=== PATIENT | female | born 1995 | race Caucasian/White ===

== ENCOUNTER → 2016-07-24 | Outpatient (CLI) | payer MEDICAID, OTHER ==
[~2016-07-24] MED LIST: METHACHOLINE KIT (J7674) INH ONE
== END ==
LOC: M CARPUL 10:27
PROVIDERS: ATTEND Nurse Practitioner Adult Health
DX: R06.02 Shortness of breath (principal)

== ENCOUNTER → 2020-09-07 | Outpatient (CLI) | payer OTHER ==
--- NOTE | 2020-09-08 07:51 | REP ---
INDICATION: ANATOMY COMPARISON: None. TECHNIQUE: Transabdominal obstetrical ultrasound with color Doppler evaluation. FINDINGS: Examination demonstrates a single live intrauterine in breech presentation. motion is identified by technologist. Placenta is noted posterior/fundal and grade 0 without evidence for placenta previa or abruption. Amniotic fluid volume is normal. Cervix measures 5.4 cm in length and appears closed.. Gestational age by LMP 16 weeks 6 days with SAIGE 02/16/2021. Gestational age by current measurements 18 weeks 5 days with SAIGE 02/03/2021. FHR equals 134 beats per minute. BPD: 4.2 cm at 18 weeks 5 days HC: 15.8 cm at 18 weeks 5 days AC: 12.9 cm at 18 weeks 3 days FL: 2.9 cm at 18 weeks 6 days HL: 2.8 cm at 19 weeks 0 days HC/AC: 1.22 Estimated weight 251 grams (41stpercentile based on age by current measurements). Anatomical assessment demonstrates normal structures including cranium, cavum, cerebellum/posterior fossa, facial features, lungs, ventricular outflow tracts, diaphragm, stomach, cord insertion/three-vessel cord, kidneys/bladder, and extremities. Small bilateral choroid plexus cysts are identified along with echogenic foci within the cardiac ventricle suggesting prominent chordae tendineae. Incomplete evaluation of the spine due to positioning. IMPRESSION: Single live intrauterine in breech presentation demonstrating appropriate estimated weight based on current measurements. Anatomical limitations as noted above may warrant re-evaluation and follow-up. <Electronically signed by Booker Simon > 09/08/20 [id number]
== END ==
LOC: M WHC 10:51
PROVIDERS: ATTEND Advanced Practice Midwife
DX: Z34.92 Encounter for supervision of normal pregnancy, unspecified, second trimester (principal); Z3A.16 16 weeks gestation of pregnancy

== ENCOUNTER → 2020-09-11 | Outpatient (CLI) | payer OTHER | LOC: M WHC 17:46 | PROVIDERS: ATTEND Obstetrics & Gynecology | DX: Z53.9 Procedure and treatment not carried out, unspecified reason (principal) ==

== ENCOUNTER → 2020-09-12 | Outpatient (CLI) | payer OTHER | LOC: M WHC 10:36 | PROVIDERS: ATTEND Advanced Practice Midwife | DX: Z34.91 Encounter for supervision of normal pregnancy, unspecified, first trimester (principal) ==

== ENCOUNTER 2020-12-19 13:32 | Outpatient (CLI) | payer OTHER ==
[~2020-12-19] VITALS: Ht 160 cm; Wt 103.0 kg
[2020-12-19] VITALS (9 sets, daily range): BP systolic 131–159; BP diastolic 72–88
[2020-12-19] MEDS ORDERED: ACET-907 PO (13:52)
[2020-12-19] MEDS ORDERED: OMEP-221 (13:52)
[2020-12-19] MEDS ORDERED: ONDA4TAB6 (13:52)
[2020-12-19] MEDS ORDERED: FIORICET TAB PO ONE (14:00)
[2020-12-19 14:17] LABS: HEMATOCRIT 32.8 % (36.0-47.0); HEMOGLOBIN 10.6 g/dl (12.0-15.5); MEAN CORPUSCULAR HEMOGLOBIN 26.3 pg (27.0-33.0); MEAN CORPUSCULAR HGB CONC 32.3 g/dl (32.0-36.5); MEAN CORPUSCULAR VOLUME 81.4 fl (80.0-96.0); PLATELET COUNT, AUTOMATED 427 10^3/uL (150-450); RED BLOOD COUNT 4.03 10^6/uL (4.00-5.40); WHITE BLOOD COUNT 10.6 10^3/uL (4.0-10.0)
[2020-12-19 14:41] LABS: TOTAL PROTEIN,RANDOM URINE 40.2 MG/DL (0.0-12.0)
[2020-12-19 14:50] LABS: ALBUMIN 2.4 GM/DL (3.2-5.2); ALT/SGPT 23 U/L (12-78); BILIRUBIN,TOTAL 0.2 MG/DL (0.2-1.0); BLOOD UREA NITROGEN 7 MG/DL (7-18); CALCIUM LEVEL 8.6 MG/DL (8.5-10.1); CARBON DIOXIDE LEVEL 20 MEQ/L (21-32); CHLORIDE LEVEL 109 MEQ/L (98-107); CREATININE FOR GFR 0.56 MG/DL (0.55-1.30); GLOMERULAR FILTRATION RATE > 60.0 (>60); GLUCOSE, FASTING 132 MG/DL (70-100); LDH LACTATE DEHYDROGENASE 167 U/L (84-246); SODIUM LEVEL 138 MEQ/L (136-145); TOTAL PROTEIN 6.4 GM/DL (6.4-8.2); URIC ACID 4.3 MG/DL (2.6-6.0)
--- NOTE | 2020-12-19 17:03 | REP ---
INDICATION: GHTN vs Pre-e, EDC: 02/03/21. EFW, BPP please. COMPARISON: 09/07/2020 TECHNIQUE: Transabdominal of OB ultrasound scanning. Color imaging and Doppler interrogation of umbilical arteries performed. Biophysical profile performed. FINDINGS: Scanning demonstrates a viable single intrauterine gestation now in a cephalic lie. motion is observed and heart rate is recorded at 139 beats per minute. A posterior, grade 1 placenta is seen without evidence of previa. Amniotic fluid is subjectively normal. The TETO is 22.4 cm with normal range 8.2-24.6. Largest fluid pocket 7.9 cm. Closed cervical length is measured at 3.7 cm transabdominally. No extrauterine abnormality is observed. There has been appropriate interval growth. No anomaly is seen. The following anatomic structures are identified and felt to be sonographically unremarkable today or on the previous study.: cranium, cavum, cerebellum and posterior fossa, face and profile, lungs, left and right ventricular outflow tract views, diaphragm, left-sided stomach, abdominal wall cord insertion, three-vessel umbilical cord, kidneys and bladder, spine, and upper and lower extremities. Choroid plexus is not optimally visualized on this exam. Four-chamber heart view in adequately seen on this patient due to position. Biometry chart: BPD 8.7 cm; 35 weeks 0 days Head circumference 30.9 cm; 34 weeks 4 days Abdominal circumference 30.4 cm; 34 weeks 2 days Femur length 6.8 cm; 34 weeks 6 days Humeral length 6.0 cm; 35 weeks 0 days HC/AC ratio normal 1.02 Cephalic index normal 0.80 Estimated weight 2457 grams, 5 pounds 6 ounces, 71st percentile for 33 weeks 3 days (based on initial ultrasound). Mid cord umbilical artery Doppler shows S/D ratio 2.57 with normal forward diastolic flow and resistive index of 0.61, all of this normal. Biophysical profile: Breathin Tone: 2 Movement: 2 AF the colon 2 IMPRESSION: Viable single intrauterine gestation at 34 weeks 5 days by today's composite sonographic criteria. Expected gestational age estimate based on prior sonography is 33 weeks is 3 days. SAIGE by prior sonography 02/03/2021. No anomaly visible,. but the four-chamber heart is incompletely evaluated on the previous and this exam due to position. Choroid plexus not well seen today. Biophysical profile score 12/31 <Electronically signed by Don Maldonado > 12/19/20 [id number]
[2020-12-19] MEDS ORDERED: FIOR1CAP PO (18:06)
--- NOTE | 2020-12-19 19:50 | IPNPDOC ---
Obstetrical Progress Note Date of Service Dec 19, 2020 Subjective 25-year-old -0-0-1 at 33+3 weeks gestation. Presents today with complaints of generalized edema and intermittent headaches. Her last appointment was on September 12, 2020. Poor adherence to appointments attributable to lack of private transportation. Patient states she also has not had a cell phone for several months. She is dated by a first trimester ultrasound, with an EDC of 02/03/2021. She denies any vaginal bleeding, loss of fluid, or uterine contractions. She is feeling her baby move frequently. Her headaches are intermittent often unresponsive to Tylenol. She denies any visual changes right upper quadrant pain shortness of breath or chest pain. 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 Heart regular rate and rhythm Lungs clear to auscultation bilaterally Extremities 1-2+ DTR, nonedematous, nontender Abdomen soft nontender uterine fundus nontender and consistent with gestational age Labs: Item Value Date Time White Blood Count 10.6 10^3/uL H 12/19/20 1407 Hemoglobin 10.6 g/dl L 12/19/20 1407 Hematocrit 32.8 % L 12/19/20 1407 Platelet Count 427 10^3/uL 12/19/20 1407 Creatinine 0.56 MG/DL 12/19/20 1407 Uric Acid 4.3 MG/DL 12/19/20 1407 Aspartate Amino Transf (AST/SGOT) 20 U/L 12/19/20 1407 Alanine Aminotransferase (ALT/SGPT) 23 U/L 12/19/20 1407 Lactate Dehydrogenase 167 U/L 12/19/20 1407 Urine Random Creatinine 167.0 MG/DL 12/19/20 1410 Urine Random Total Protein 40.2 MG/DL H 12/19/20 1410 Rads: Ultrasound limited: BPP 8 out of 8, EFW 71st percentile [facility] EFM: Category 1/reactive, no decelerations, moderate variability [place]: No contraction pattern detected A/P: 25-year-old -0-0-1 at 33+3 weeks gestation. Possible gestational hypertension/preeclampsia. No evidence of severe features. Reassuring status and maternal status is stable. I discussed with patient possibility of developing preeclampsia with severe features. Importance of close outpatient follow-up emphasized. Now that she has adequate transportation, she is able to follow-up closely with our practice. She has an appointment for later this week on 12/22. Discussed the possibility of induction of labor if her clinical status worsens. Her headache improved with Fioricet while being evaluated in the triage unit. A prescription for Fioricet was entered to her pharmacy. Signs symptoms of preeclampsia were reviewed and she will return at a sooner date if necessary. Objective Vital Signs Date Time Temp Pulse Resp B/P (MAP) Pulse Ox O2 Delivery O2 Flow Rate FiO2 12/19/20 18:01 104 18 139/88 (105) 12/19/20 13:50 97.5 SEPIDEH PUENTE DO Dec 19, 2020 19:50
== END 2020-12-19 18:18 | disposition home or self-care (01) ==
LOC: M LDO 13:32
PROVIDERS: ATTEND Obstetrics & Gynecology
DX: O26.893 Other specified pregnancy related conditions, third trimester (principal); R51.9 Headache, unspecified; R60.9 Edema, unspecified; O09.33 Supervision of pregnancy with insufficient antenatal care, third trimester; R03.0 Elevated blood-pressure reading, without diagnosis of hypertension; Z3A.33 33 weeks gestation of pregnancy

== ENCOUNTER 2020-12-22 16:01 | Outpatient (CLI) | payer OTHER ==
[~2020-12-22 16:01] MED LIST changes: +ACET-907 PO; +FIOR1CAP PO; -METHACHOLINE KIT (J7674) INH ONE; +OMEP-221; +ONDA4TAB6
[2020-12-22 17:20] LABS: HEMATOCRIT 31.8 % (36.0-47.0); HEMOGLOBIN 10.5 g/dl (12.0-15.5); MEAN CORPUSCULAR HEMOGLOBIN 26.6 pg (27.0-33.0); MEAN CORPUSCULAR VOLUME 80.7 fl (80.0-96.0); PLATELET COUNT, AUTOMATED 406 10^3/uL (150-450); RED BLOOD COUNT 3.94 10^6/uL (4.00-5.40); WHITE BLOOD COUNT 10.8 10^3/uL (4.0-10.0)
[2020-12-22 17:35] LABS: ALT/SGPT 16 U/L (12-78); BILIRUBIN,TOTAL 0.2 MG/DL (0.2-1.0); CREATININE FOR GFR 0.57 MG/DL (0.55-1.30); GLOMERULAR FILTRATION RATE > 60.0 (>60); LDH LACTATE DEHYDROGENASE 153 U/L (84-246); URIC ACID 4.7 MG/DL (2.6-6.0)
[2020-12-22 18:39] LABS: TOTAL PROTEIN,RANDOM URINE 41.4 MG/DL (0.0-12.0)
--- NOTE | 2020-12-22 19:05 | IPNPDOC ---
Text Note Date of Service The patient was seen on 12/22/20. NOTE Outpatient 25yo . SAIGE 02/03/2021. Presents from office at 33w6d. has been complicated by noncompliance with care. Hasn't been officially seen in the office since 09/12/2020. Has reported labile blood pressures with headaches. Was seen on L&D earlier this week for PreE workup as well. No distress noted Normotensive FH reassuring for gestation, no UC HbA1C 6.0. Pt now reports previous history GDM during first , diet controlled PreE labs WNL, urine ratio now 0.18, previously 0.24 Reviewed with patient need to have appropriate visits from here forward 1hr GCT ordered. Stressed importance of having it done at her appt next week Pt verbalized understanding. States they now have better access to transportation and phone for calling office. Discharged home. VS,Fishbone, I+O VS, Fishbone, I+O Laboratory Tests 12/22/20 16:53 Brandie Ma CNM Dec 22, 2020 19:05
== END 2020-12-22 20:19 | disposition home or self-care (01) ==
LOC: M LDO 16:01
PROVIDERS: ATTEND Advanced Practice Midwife
DX: O26.893 Other specified pregnancy related conditions, third trimester (principal); Z3A.33 33 weeks gestation of pregnancy; R03.0 Elevated blood-pressure reading, without diagnosis of hypertension; Z87.59 Personal history of other complications of pregnancy, childbirth and the puerperium; O09.33 Supervision of pregnancy with insufficient antenatal care, third trimester

== ENCOUNTER 2021-01-14 05:26 | Inpatient (IN) | payer OTHER ==
[2021-01-14] VITALS (44 sets, daily range): BP systolic 94–153; BP diastolic 50–91
[~2021-01-14] VITALS: Ht 160 cm; Wt 104.0 kg
[2021-01-14] MEDS ORDERED: PENICILLIN G POTASSIUM IV 5 MU in D5W MINI-BAG PLUS 100 ML IV STA (06:21)
[2021-01-14] MEDS ORDERED: LACTATED RINGER'S 1000 ML IV STA (06:21)
[2021-01-14] MEDS ORDERED: METHYLERGONOVINE MALEATE 0.2 MG/ML VIAL (J2210) IM PRN (06:25)
[2021-01-14] MEDS ORDERED: CARBOPROST TROMETHAMINE 250 MCG/ML AMP IM PRN (06:25)
[2021-01-14] MEDS ORDERED: TRANEXAMIC ACID INJection 1,000 MG in NS 100 ML IV PRN (06:25)
--- NOTE | 2021-01-14 06:38 | HPEPDOC ---
Obstetrical History & Physical General Date of Admission Jan 14, 2021 at 06:22 History of Present Illness 25-year-old G2, P1001 at 37+1 weeks gestation. Presents with frequent, painful uterine contractions over the past several hours. Denies any loss of fluid or vaginal bleeding. Reports regular movement. ROS: no PEÑA, cp, sob, fever/chills/nausea/vomiting. course: Scant care; only for appointments. Routine labs not done as requested. 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 Ondansetron (Ondansetron Odt) 4 Mg Tab.rapdis Physical Examination Physical Examination GENERAL: Alert and oriented times three. ABDOMEN: Gravid and non-tender to touch. FETUS: Is vertex (VTX) by sterile vaginal examination (SVE), fetus is vertex (VTX) by Oswaldo. HEART RATE: Regular rate and rhythm. LUNGS: Clear to auscultation (CTA). EXTREMITIES: No edema. No clonus. SVE: 3 cm, 75%, -3 station, cephalic, grossly ruptured with positive nitrazine and pooling, no bloody show EFM: Category 1 [place]: Contractions every 3 to 7 minutes Vital Signs/I&O Vital Signs Date Time Temp Pulse Resp B/P (MAP) Pulse Ox O2 Delivery O2 Flow Rate FiO2 01/14/21 05:53 97.6 01/14/21 05:51 76 121/58 (79) Assessment/Plan Assessment 25-year-old -0-0-1 at 37+1 weeks gestation with spontaneous rupture of membranes at term. Reassuring maternal and status Plan Admit and orient. 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 We will cover with prophylactic antibiotics for GBS Labs and intravenous (IV) per unit protocol. Active management / augmentation as indicated. DO KWAME Vallejo JONATHAN R. DO Jan 14, 2021 06:38
[2021-01-14] MEDS ORDERED: OXYTOCIN DRIP 30 UNITS in IV 1 EA IV SCH ×2 (06:45→19:50)
[2021-01-14 07:26] LABS: HEMATOCRIT 30.2 % (36.0-47.0); HEMOGLOBIN 9.8 g/dl (12.0-15.5); MEAN CORPUSCULAR HEMOGLOBIN 25.7 pg (27.0-33.0); MEAN CORPUSCULAR HGB CONC 32.5 g/dl (32.0-36.5); MEAN CORPUSCULAR VOLUME 79.3 fl (80.0-96.0); PLATELET COUNT, AUTOMATED 356 10^3/uL (150-450); RED BLOOD COUNT 3.81 10^6/uL (4.00-5.40); WHITE BLOOD COUNT 8.1 10^3/uL (4.0-10.0)
[2021-01-14] MEDS: LR 1,000 ML IV SCH ×2 (07:46→14:42)
[2021-01-14] MEDS ORDERED: FENTANYL 2MCG/ML ROPIVACAINE 0.2% IN 0.9% NACL 100ML IVBAG As Ordered ONE ×2 (08:53→18:35)
[2021-01-14] MEDS ORDERED: **PENDING PCN ENTRY XX SCH (09:00)
[2021-01-14] MEDS ORDERED: REFRIGERATOR IV KEYS XX PRN (10:10)
[2021-01-14] MEDS ORDERED: ONDANSETRON 4MG/2ML VIAL IV PRN ×2 (10:10→19:50)
[2021-01-14] MEDS ORDERED: EPIDURAL COMMENT XX SCH (10:10)
[2021-01-14] MEDS ORDERED: ePHEDrine SULFATE 25 MG/5 ML(5MG/ML) SYRINGE IV PRN (10:10)
[2021-01-14] MEDS ORDERED: NALOXONE INJ 0.4MG/1ML VIAL (J2310 PER 1MG) IV PRN (10:10)
[2021-01-14] MEDS ORDERED: EPIDURAL/PCA KEYS XX PRN (10:10)
[2021-01-14] MEDS ORDERED: diphenhydrAMINE 50MG/ML VIAL (J1200) IV PRN (10:10)
[2021-01-14] MEDS ORDERED: LACTATED RINGER'S 1000 ML IV PRN (10:10)
[2021-01-14] MEDS: FENTANYL/ROPIVACAINE/NACL BAG 100 ML EPIDURAL SCH ×2 (10:24→18:53)
[2021-01-14] MEDS ORDERED: PENICILLIN G POTASSIUM IV 2.5 MU in IV 1 EA IV SCH (10:25)
[2021-01-14] MEDS: PENICILLIN G POTASSIUM IV 2.5 MU in IV 1 EA IV SCH ×2 (12:16→17:17)
--- NOTE | 2021-01-14 14:12 | IPNPDOC ---
Obstetrical Progress Note Date of Service Jan 14, 2021 Subjective Patient is comfortable with an epidural. No fever chills myalgias. No vaginal bleeding Objective Vital Signs Date Time Temp Pulse Resp B/P (MAP) Pulse Ox O2 Delivery O2 Flow Rate FiO2 01/14/21 12:36 68 94/50 (65) 01/14/21 05:53 97.6 Assessment Heart Rate Tracing: Category I Tocometer Contractions: Yes Frequency: every 2-5 min. (Pitocin at 6 milliunits/min) Sterile Vaginal Examination Dilation: 5 cm Effacement (%): 50% Station: -2 Cervical Consistency: Soft Cervical Position: Anterior Postion/Presentation: Cephalic presentation Assessment and Plan Status: Reassuring Group B Streptococcus: Unknown Anticipate: Vaginal Delivery Additional Comments Continue with Pitocin IUPC and FSE if unchanged after 3 to 4 hours SEPIDEH PUENTE DO Jan 14, 2021 14:12
[2021-01-14] MEDS ORDERED: DOCUSATE SODIUM 100MG CAPSULE PO PRN (19:50)
[2021-01-14] MEDS ORDERED: MEASLES,MUMPS,RUBELLA VACCINE INJ (MMR-II) (90707) SC SCH (19:50)
[2021-01-14] MEDS ORDERED: IBUPROFEN 600MG TAB PO PRN (19:50)
[2021-01-14] MEDS ORDERED: RHOGAM 300 MCG (1500 IU) INJ (J2790) IM SCH (19:50)
[2021-01-14] MEDS ORDERED: METHYLERGONOVINE MALEATE 0.2 MG TAB PO PRN (19:50)
[2021-01-14] MEDS ORDERED: DIBUCAINE 1% OINTMENT 30GM TOP PRN (19:50)
[2021-01-14] MEDS ORDERED: ACETAMINOPHEN TAB 650MG DOSE (2X325MG) PO PRN (19:50)
[2021-01-14] MEDS ORDERED: LR 1,000 ML IV SCH (19:50)
[2021-01-14] MEDS ORDERED: ACETAMINOPHEN 500 MG TAB PO PRN (19:50)
--- NOTE | 2021-01-14 19:55 | DNPDOC ---
[facility] Delivery Note Delivery Note DATE OF DELIVERY: 01/14/2021 TIME OF DELIVERY: 193 Spontaneous vaginal delivery. DIRT BIKE RACER: Dr. Matt Quintero DO FACOG ANESTHESIA: Epidural LACERATION: None ESTIMATED BLOOD LOSS: 200 mL. FINDINGS: 6 pound 9 ounce (2980g) Male infant, Score 8 and 9. DELIVERY SUMMARY: The active phase and second stage of labor progressed in normal fashion. She received Pitocin augmentation throughout her labor course. The head delivered in the MAIKOL position, and restituted LOT. No nuchal cord was noted. The anterior shoulder delivered with gentle downward guidance and the remainder of the body delivered with ease. The baby was placed on the patient's chest. Delayed cord clamping occurred for approximately 1 minute. The cord was then doubly clamped and cut. IV Pitocin was bolused to actively manage the third stage of labor. The placenta delivered intact without any difficulty within 10 minutes of delivery. The uterine fundus was noted to be firm and 2 cm below the umbilicus. The cervix, vagina, vulva and perineum were inspected. Excellent hemostasis was noted. Sponge, needle and instrument counts were correct per protocol. DO DUNG Neal JONATHAN R. DO Jan 14, 2021 19:54
[2021-01-15] MEDS: IBUPROFEN 800 MG TAB PO PRN ×2 (03:00→11:46)
[2021-01-15 06:06] VITALS: BP 95/55
[2021-01-15] MEDS: PRENATAL VITAMINS CHEWABLE TABLET PO SCH (08:53)
--- NOTE | 2021-01-15 10:47 | IPNPDOC ---
Progress Note Date of Service: Jan 15, 2021 Day#: 1 Progress Note SUBJECT: Sarai is a 25-year-old female who is day 1 . She had an uncomplicated vaginal delivery. Her was complicated by minimal care. She has no complaints. Reports she is eating a regular diet and ambulating without any issues. She reports she is voiding without any issues. OBJECTIVE: VITAL SIGNS: Within normal limits, afebrile. Alert and oriented times three. Respiratory: regular rate and rhythm. No use of accessory muscles. Abdomen: Fundus firm at U-1. Soft, NTTP. Minimal lochia. ASSESSMENT: Day 1 . PLAN: 1. Continue supportive nursing care. 2. PFS consult to be done due to minimal care and lack of transportation. 3. Consider discharge to home tomorrow. 4. Patient may shower today and have her saline lock out. VS, I&O, 24H, Fishbone Vital Signs/I&O Vital Signs Date Time Temp Pulse Resp B/P (MAP) Pulse Ox O2 Delivery O2 Flow Rate FiO2 01/15/21 06:06 97.8 64 14 95/55 (68) 97 Room Air I&O- Last 24 Hours up to 6 AM 01/15/21 05:59 Intake Total 665 ml Output Total 1350 ml Balance -685 ml Laboratory Data 24H LABS Laboratory Tests 2 01/14/21 12:26: Serology Scanned Report Hepatitis B Testing Microbiology Microbiology 01/14/21 Group B Streptococcus Screen (VANIA), Received Pending SHELDON LAM CNM Jan 15, 2021 10:47
[2021-01-15 13:37] LABS: HEPATITIS C VIRUS ABY INDEX < 0.0 INDEX (<0.8); HIV 1&2 SCREEN CENTAUR NEGATIVE (NEGATIVE)
[2021-01-15 18:00] VITALS: BP 125/72
[2021-01-16 06:00] VITALS: BP 90/50
[2021-01-16] MEDS: PRENATAL VITAMINS CHEWABLE TABLET PO SCH (07:35)
[2021-01-16] MEDS ORDERED: ACET-683 PO (08:15)
[2021-01-16] MEDS ORDERED: IBUP80TA PO (08:15)
== END 2021-01-16 12:58 | disposition home or self-care (01) | DRG 560 ==
LOC: M LDO 05:26 → M LDI 06:22 → M OBS 22:05
PROVIDERS: ADMIT Obstetrics & Gynecology; ATTEND Obstetrics & Gynecology
PROC: 10E0XZZ Delivery of Products of Conception, External Approach (ICD-10-PCS; principal; 2021-01-14)
DX: O80 Encounter for full-term uncomplicated delivery (principal); Z37.0 Single live birth; Z3A.37 37 weeks gestation of pregnancy

== ENCOUNTER → 2023-04-22 | Outpatient (CLI) | payer OTHER ==
[~2023-04-22] MED LIST changes: +ACET-683 PO; +IBUP80TA PO; -OMEP-221; +OMEP40CA5
== END ==
LOC: M WHC 09:57
PROVIDERS: ATTEND Advanced Practice Midwife
DX: Z34.82 Encounter for supervision of other normal pregnancy, second trimester (principal); Z3A.20 20 weeks gestation of pregnancy

== ENCOUNTER 2023-08-07 16:15 | Outpatient (CLI) | payer OTHER ==
[~2023-08-07] VITALS: Ht 160 cm; Wt 99.4 kg
[2023-08-07] MEDS ORDERED: PRENTAB9 PO (16:36)
[2023-08-07] MEDS ORDERED: CALC500C15 PO (16:36)
[2023-08-07 16:44] VITALS: BP 140/79
[2023-08-07] MEDS ORDERED: OSELTAMIVIR PHOSPHATE 75 MG CAP (TAMIFLU) PO ONE (17:05)
[2023-08-07] MEDS: ACETAMINOPHEN 500 MG TAB PO ONE (17:09)
[2023-08-07] MEDS: LR 1,000 ML IV ONE (17:09)
[2023-08-07] MEDS: OSELTAMIVIR PHOSPHATE 75 MG CAP (TAMIFLU) PO ONE (17:25)
[2023-08-07 17:46] VITALS: BP 133/56
[2023-08-07] MEDS: CEPACOL LOZENGE PO PRN (18:24)
[2023-08-07] MEDS: BENZONATATE 100MG CAPSULE PO ONE (18:25)
[2023-08-07 18:59] VITALS: BP 131/69
[2023-08-07] MEDS ORDERED: OMEP-173 PO (20:41)
[2023-08-07] MEDS ORDERED: OSEL75CA PO (20:42)
== END 2023-08-07 20:40 | disposition home or self-care (01) ==
LOC: M LDO 16:15
PROVIDERS: ATTEND Obstetrics & Gynecology
DX: O99.53 Diseases of the respiratory system complicating the puerperium (principal); J11.1 Influenza due to unidentified influenza virus with other respiratory manifestations; Z3A.36 36 weeks gestation of pregnancy
CPT/HCPCS: 59025; G0463

== ENCOUNTER 2023-08-13 16:44 | Inpatient (IN) | payer OTHER ==
[~2023-08-13] VITALS: Ht 160 cm; Wt 101.6 kg
[~2023-08-13 16:44] MED LIST changes: +CALC500C15 PO; +OMEP-173 PO; +OSEL75CA PO; +PRENTAB9 PO
[2023-08-13 17:04] VITALS: BP 102/64
[2023-08-13] MEDS ORDERED: HOME MED LIST COMPLETE! XX SCH (17:05)
[2023-08-13] MEDS ORDERED: OXYTOCIN DRIP 30 UNITS in IV 1 EA IV PRN (17:40)
[2023-08-13] MEDS ORDERED: TRANEXAMIC ACID INJection 1,000 MG in NS 100 ML IV PRN (17:40)
[2023-08-13] MEDS ORDERED: CARBOPROST TROMETHAMINE 250 MCG/ML AMP IM PRN (17:40)
[2023-08-13] MEDS ORDERED: LIDOCAINE 1% MDV 20ML VIAL INFIL PRN (17:40)
[2023-08-13] MEDS ORDERED: METHYLERGONOVINE MALEATE 0.2MG/ML 1ML VIAL IM PRN (17:40)
[2023-08-13] MEDS ORDERED: OXYTOCIN INJ 10UNITS/ML 1ML VIAL IM PRN (17:40)
[2023-08-13 17:49] VITALS: BP 134/64
[2023-08-13 18:15] LABS: HEMATOCRIT 33.3 % (36.0-47.0); HEMOGLOBIN 11.1 g/dl (12.0-15.5); MEAN CORPUSCULAR HEMOGLOBIN 27.5 pg (27.0-33.0); MEAN CORPUSCULAR HGB CONC 33.3 g/dl (32.0-36.5); MEAN CORPUSCULAR VOLUME 82.6 fl (80.0-96.0); PLATELET COUNT, AUTOMATED 338 10^3/uL (150-450); RED BLOOD COUNT 4.03 10^6/uL (4.00-5.40); WHITE BLOOD COUNT 10.2 10^3/uL (4.0-10.0)
[2023-08-13] MEDS: PENICILLIN G POTASSIUM 5 MU IV 5 MU in D5W MINI-BAG PLUS 100 ML IV STA (18:19)
[2023-08-13 18:50] VITALS: BP 110/70
[2023-08-13 18:52] LABS: AMPHETAMINES URINE REFLEX NEGATIVE (NEGATIVE); BARBITURATES URINE REFLEX NEGATIVE (NEGATIVE); BENZODIAZEPINES URINE REFLEX NEGATIVE (NEGATIVE); COCAINE METABOLITE URINE REFLE NEGATIVE (NEGATIVE); METHADONE URINE REFLEX NEGATIVE (NEGATIVE); OPIATES URINE REFLEX NEGATIVE (NEGATIVE); PHENCYCLIDINE URINE REFLEX NEGATIVE (NEGATIVE)
[2023-08-13 18:59] LABS: CANNABINOIDS URINE REFLEX PENDING CONFIRMATION (NEGATIVE)
[2023-08-13] MEDS: BUTORPHANOL 2 MG/ML 1ML VIAL IV ONE (22:04)
[2023-08-13] MEDS: PROMETHAZINE 25MG/ML 1ML VIAL IV ONE (22:04)
[2023-08-13] MEDS: PEN G POT 3,000,000 UNIT/50 ML 3,000,000 UNIT in IV 1 EA IV SCH (22:25)
[2023-08-14] VITALS (35 sets, daily range): BP systolic 79–133; BP diastolic 47–71; O2SAT 97
[2023-08-14] MEDS: PRENATAL VITAMINS CHEWABLE TABLET PO SCH (09:00)
[2023-08-14] MEDS: OXYTOCIN DRIP 30 UNITS in IV 1 EA IV SCH (09:53)
[2023-08-14] MEDS: LR 1,000 ML IV SCH (10:06)
[2023-08-14] MEDS ORDERED: diphenhydrAMINE 50MG/ML VIAL IV PRN (10:35)
[2023-08-14] MEDS ORDERED: EPIDURAL/PCA KEYS XX PRN (10:35)
[2023-08-14] MEDS ORDERED: ePHEDrine SULFATE 25 MG/5 ML(5MG/ML) SYRINGE IVP PRN (10:35)
[2023-08-14] MEDS ORDERED: NALOXONE INJ 0.4MG/1ML VIAL IV PRN (10:35)
[2023-08-14] MEDS ORDERED: LR 500 ML IV PRN (10:35)
[2023-08-14] MEDS: FENTANYL/ROPIVACAINE/NACL BAG 100 ML EPIDURAL SCH (10:40)
[2023-08-14] MEDS: ONDANSETRON 4MG 2ML VIAL IV PRN (11:35)
[2023-08-14] MEDS ORDERED: DIBUCAINE 1% OINTMENT 30GM TOP PRN (14:00)
[2023-08-14] MEDS ORDERED: ACETAMINOPHEN TAB 650MG DOSE (2X325MG) PO PRN (14:00)
[2023-08-14] MEDS ORDERED: ACETAMINOPHEN 500 MG TAB PO PRN (14:00)
[2023-08-14] MEDS ORDERED: RHOGAM 300MCG (1500IU) INJ IM SCH (14:00)
[2023-08-14] MEDS ORDERED: IBUPROFEN 600MG TAB PO PRN (14:00)
[2023-08-14] MEDS ORDERED: DOCUSATE SODIUM 100MG CAPSULE PO PRN (14:00)
[2023-08-14] MEDS ORDERED: METHYLERGONOVINE MALEATE 0.2 MG TAB PO PRN (14:00)
[2023-08-14] MEDS: IBUPROFEN 800 MG TAB PO PRN (23:40)
[2023-08-15 06:00] VITALS: BP 100/50
[2023-08-16] MEDS ORDERED: MEASLES,MUMPS,RUBELLA VACCINE INJ (MMR-II) SC.IMMUN ONE (09:00)
[2023-08-16 10:10] LABS: Cannabinoid Positive (.); Carboxy THC Conf, MS, UR 144 ng/mL (Cutoff=10)
== END 2023-08-15 16:45 | disposition home or self-care (01) | DRG 560 ==
LOC: M LDO 16:44 → M LDI 17:36 → M OBS 08-14 16:40
PROVIDERS: ADMIT Advanced Practice Midwife; ATTEND Specialist
PROC: 10E0XZZ Delivery of Products of Conception, External Approach (ICD-10-PCS; principal; 2023-08-14)
PROC: 10907ZC Drainage of Amniotic Fluid, Therapeutic from Products of Conception, Via Natural or Artificial Opening (ICD-10-PCS; 2023-08-14)
DX: O60.13X0 Preterm labor second trimester with preterm delivery third trimester, not applicable or unspecified (principal); Z37.0 Single live birth; Z3A.36 36 weeks gestation of pregnancy; O99.824 Streptococcus B carrier state complicating childbirth